=== PATIENT | female | born 2005 | race African-American/Black ===

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

== ENCOUNTER 2024-07-05 23:11 | Emergency (ER) | payer MEDICAID, OTHER ==
[~2024-07-05] VITALS: Ht 162.6 cm; Wt 135.0 kg
[2024-07-05 23:23] VITALS: O2SAT 100
[2024-07-05 23:43] VITALS: BP 120/84; PULSE 127; RESP 18; TEMP 36.9; O2SAT 99
[2024-07-06] MEDS ORDERED: DEXAMETHASONE 0.5MG/5ML ORAL SYR PO ONE (05:30)
[2024-07-06] MEDS ORDERED: DEXAMETHASONE 10 MG/ML VIAL PO NR (05:30)
[2024-07-06] MEDS: DEXAMETHASONE 10 MG/ML VIAL PO ONE (05:39)
== END 2024-07-06 05:41 | disposition home or self-care (01) ==
LOC: ER 23:11
DX: J02.8 Acute pharyngitis due to other specified organisms (principal); B97.89 Other viral agents as the cause of diseases classified elsewhere; Z79.899 Other long term (current) drug therapy
CPT/HCPCS: 99283; 87430; 87070; J1100; J8540